=== PATIENT | male | born 1965 | race Caucasian/White ===

== ENCOUNTER 2023-04-05 23:58 | Emergency (ER) | payer OTHER ==
--- OUTSIDE RECORDS SUMMARY | 2023-04-06 00:04 | XMS REPORT | Continuity of Care Document ---
:1965 Author Organization [facility] t Address [address] [facility] [place]. [id number] Care Team Providers Name Role Phone James Parekh MD Primary Care Physician [phone] ARNULFO TRINH Attending Clinician Unavailable NOA KHALIL Attending Clinician Unavailable EDNA ISBELL Attending Clinician Unavailable WILLI DONATO Attending Clinician Unavailable RUDY DÍAZ Attending Clinician Unavailable Julien MADISON, Juan Whitman Attending Clinician Lila Graves MD Attending Clinician Indu Ramirez MA Attending Clinician Unavailable Nati Cruz MA Attending Clinician Unavailable FOG_A_Provider Attending Clinician Unavailable Bashir Sigala PA-C Attending Clinician [phone] NOA KHALIL Attending Clinician Unavailable Lnonie Brooks MD Attending Clinician Nicolle Flores MD Attending Clinician WENDY SHORE Attending Clinician Unavailable RUDY DÍAZ Attending Clinician Unavailable EDISON GUEVARA Attending Clinician Unavailable EDISON GUEVARA Attending Clinician Unavailable Maria Sandhu RN Attending Clinician Unavailable ROBYN BOLTON Attending Clinician Unavailable Geno Babin RN Attending Clinician Unavailable Ronaldo GALEAS, Aydin Attending Clinician Unavailable Sana Murillo RN Attending Clinician Unavailable Lexi Valencia RN Attending Clinician Unavailable Gus GALEAS, Allison Attending Clinician Unavailable WILLI DONATO M.D. Attending Clinician Unavailable INDU GANT M.D. Attending Clinician Unavailable ALESSANDRO KYLE M.D. Attending Clinician Unavailable NAVEEN SWIFT M.D. Attending Clinician Unavailable MAXI CEVALLOS P.A. Attending Clinician Unavailable SHAILESH SHARMA M.D. Attending Clinician Unavailable ANSON ROBISON Attending Clinician Unavailable GENERAL, AUDIOLOGY Attending Clinician Unavailable FOG_A_Provider Admitting Clinician Unavailable Payers Payer Name Policy Type Policy Number Effective Date Expiration Date S flory [facility] [employer] [id number] 2020 2024 00:00:00 00:00:00 Problems Condition Condition Condition Status Onset Resolution Last Treating Co mments Source Name Details Category Date Date Treatment Clinician Date Liver Liver Disease Active [facility] cirrhosis cirrhosis 2-28 [facility]al th secondary secondary 00:00: to RAMIREZ to RAMIREZ 00 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 3-10 He alth 00:00: 00 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 9-30 Health 00:00: 00 Hyperchole Hyperchole Disease Active 0 U T sterolemia sterolemia 9-30 He alth 00:00: 00 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 00:00: 00 Colon Colon Disease Active UT polyp polyp 2-11 Health 00:00: 00 Deviated Deviated Disease Active UT nasal nasal 2-03 Health septum septum 00:00: 00 Perforated Perforated Disease Active 2019-0 U T nasal nasal 2-03 Health septum septum 00:00: 00 Other Other Disease Active 0 UT general general 2-03 Health symptoms symptoms 00:00: and signs and signs 00 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- Health root root 00:00: 00 Essential Essential Disease Active 2018-10 UT (primary) (primary) 1-21 Heal th hypertensi hypertensi 00:00: on on Bicuspid Bicuspid Disease Active 2018-10 UT aortic aortic - Health valve valve 00:00: 00 Chest pain Chest pain Disease Active 2018-10 U T 1-21 Health 00:00: 00 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 1-21 Health disease disease 00:00: 00 Right Right Disease Active UT upper upper 8-15 Health quadrant quadrant 00:00: guarding guarding 00 Abdominal Abdominal Disease Active UT right right 8-15 Health upper upper 00:00: quadrant quadrant 00 tenderness tenderness Abnormal Abnormal Disease Active UT LFTs LFTs 8-15 Health 00:00: 00 Acute Acute Disease Active UT maxillary maxillary 7-29 [facility]al th antritis antritis 00:00: 00 Collapse Collapse Disease Active UT of nasal of nasal 2-26 Health valve valve 00:00: 00 Acute Acute Disease Active UT ethmoidal ethmoidal 2-04 Heal th sinusitis sinusitis 00:00: 00 Trigger Trigger Disease Active UT finger, finger, 2-28 Health right ring right ring 00:00: finger finger 00 Acute Acute Disease Active 2016-10 UT upper upper 0-24 Health respirator respirator 00:00: y y 00 infection infection TMJ TMJ Disease Active UT arthralgia arthralgia 5-09 He alth 00:00: 00 Otorrhea Otorrhea Disease Active UT of right of right 3-10 Health ear ear 00:00: 00 Acute Acute Disease Active UT infective infective 3-10 Heal th otitis otitis 00:00: externa, externa, 00 right right Right Right Disease Active 2015-10 UT acute acute 1-07 Health suppurativ suppurativ 00:00: e otitis e otitis 00 media media Bilateral Bilateral Disease Active UT chronic chronic 9-13 Health serous serous 00:00: otitis otitis 00 media media Dysfunctio Dysfunctio Disease Active U T n of both n of both 06-19 Heal th eustachian eustachian 00:00: tubes tubes 00 Sensation Sensation Disease Active UT of of 913 Health fullness fullness 00:00: in left in left 00 ear ear 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 909 Health loss in loss in 00:00: left ear left ear 00 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-24 Health movement movement 00:00: disorder disorder 00 Obstructiv Obstructiv Disease Active U T e sleep e sleep 6-24 Health apnea apnea 00:00: 00 Hypertroph Hypertroph Disease Active U T y of nasal y of nasal 6-24 He alth turbinates turbinates 00:00: 00 Headache Headache Disease Active UT 7-22 Health 00:00: 00 Cubital Cubital Disease Active UT tunnel tunnel 5-14 Health syndrome syndrome 00:00: on left on left 00 Vitamin Vitamin Disease Active UT B12 B12 5-10 Health deficiency deficiency 00:00: 00 Disturbanc Disturbanc Disease Active U T e of skin e of skin 4-30 Heal th sensation sensation 00:00: 00 Acid Acid Disease Active Method[facility] reflux reflux 1-01 st disease disease 00:00: Hospita 00 l History of History of Problem Resolve UT 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 ans History of History of Problem Resolve UT Meningitis Meningitis HL7.CCDAR2 d Physici ans History of History of Problem Resolve UT Migraine Migraine HL7.CCDAR2 d Ph ysici without without ans status status migrainosu migrainosu s, not s, not intractabl intractabl e e Numbness Numbness Problem Active UT Of Both Of Both HL7.CCDAR2 Phys ici Legs Legs ans Lumbar Lumbar Problem Active UT radiculopa radiculopa HL7.CCDAR2 Physici thy thy ans Cubital Cubital Problem Active UT tunnel tunnel HL7.CCDAR2 Physic i syndrome syndrome ans on left on left Carpal Carpal Problem Active UT tunnel tunnel HL7.CCDAR2 Physic i syndrome syndrome ans Chronic Chronic Problem Active UT rhinitis rhinitis HL7.CCDAR2 Ph ysici ans Conductive Conductive Problem Active U T hearing hearing HL7.CCDAR2 Phys ici loss in loss in ans left ear left ear Sensation Sensation Problem Active UT of of HL7.CCDAR2 Physic i fullness fullness ans in left in left ear ear Dysfunctio Dysfunctio Problem Active U T n of both n of both HL7.CCDAR2 Physici Eustachian Eustachian an s tubes tubes Acute Acute Problem Active UT suppurativ suppurativ HL7.CCDAR2 Physici e otitis e otitis ans media of media of left ear left ear without without spontaneou spontaneou s rupture s rupture of of tympanic tympanic membrane, membrane, recurrence recurrence not not specified specified Acute Acute Problem Active UT suppurativ suppurativ HL7.CCDAR2 Physici e otitis e otitis ans media of media of right ear right ear with with spontaneou spontaneou s rupture s rupture of of tympanic tympanic membrane, membrane, recurrence recurrence not not specified specified Otorrhea Otorrhea Problem Active UT of right of right HL7.CCDAR2 Ph ysici ear ear ans Chronic Chronic Problem Active UT ethmoidal ethmoidal HL7.CCDAR2 Physici sinusitis sinusitis ans Chronic Chronic Problem Active UT maxillary maxillary HL7.CCDAR2 Physici sinusitis sinusitis ans Other Other Problem Active UT synovitis synovitis HL7.CCDAR2 Physici and and ans tenosynovi tenosynovi tis, right tis, right hand hand No known No known Disease Metho di active active st problems problems Hospit a l Allergies, Adverse Reactions, Alerts Allergy Allergy Status Severity Reaction(s) Onset Inactive Treating Comm ents Source Name Type Date Date Clinician Sulfamet Allergy Active UT hoxazole to 12-14 Health -Trimeth substanc 00:00: oprim e 00 Morphine Allergy Active UT to 12-10 Health substanc 00:00: e 00 Morphine Propensi Active Other (See Me thodi ty to Comments) 12-10 st adverse 00:00: Hospita reaction 00 l s to drug Sulfa Allergy Active UT Antibiot to 07-06 Health ics substanc 00:00: e 00 Sulfa Propensi Active Other (See Meth roseann (Sulfona ty to Comments) 07-06 st mide adverse 00:00: Hospita Antibiot reaction 00 l ics) s to drug Clindamy Allergy Active Rash 2019-0 UT jose elias to 03-02 Health substanc 00:00: e 00 Levoflox Allergy Active Rash 2020-0 UT acin to 03-02 Health substanc 00:00: e 00 Clindamy Propensi Active Rash 2020-0 Method i jose elias ty to 03-02 st adverse 00:00: Hospita reaction 00 l s to drug Clindamy Propensi Active Rash 2020-0 Method i jose elias ty to 03-02 st Phosphat adverse 00:00: Hospita e reaction 00 l s to drug Levoflox Propensi Active Rash [facility] i acin ty to 03-02 st adverse 00:00: Hospita reaction 00 l s to drug Sulfamet Propensi Active Rash Method i hoxazole ty to 03-02 st -Trimeth adverse 00:00: Hospita oprim reaction 00 l s to drug Penicill Allergy Active Rash UT ins to 18 Health substanc 00:00: e 00 Penicill Propensi Active Rash [facility] i ins ty to 03-24 st adverse 00:00: Hospita reaction 00 l s to drug Penicill Propensi Active Rash Method i ins ty to 03-24 st adverse 00:00: Hospita reaction 00 l s to drug Bactrim drug Active UT TABS allergy Physici ans Clindamy drug Active Rash UT jose elias allergy Physici ans Levaquin drug Active UT TABS allergy Physici ans Penicill drug Active Rash UT ins allergy Physici ans Family History Family Member Diagnosis Comments Start Date Stop Date Source Unknown Family Family history Family History [facility] Member of Cancer Unknown Family Family history Family History [facility] Member of Heart Disease Father Family history [facility] Physici ans of cerebral infarction Natural father Heart attack [facility] Natural father Heart disease [facility] Natural [facility] Maternal Cancer [facility] grandmother [facility] Social History Social Habit Start Date Stop Date Quantity Comments Source Gender identity 2021-12-20 Identifies as [facility] 17:27:53 [facility] gender Hospital (finding) Sexual orientation [facility] Alcohol intake 2023-03-26 2023-03-26 Ex-drinker [facility] 00:00:00 00:00:00 (finding) Hospital History of Social 2023-03-26 2023-03-[address] function 00:00:00 00:00:00 Hospital Exposure to 2023-01-14 2023-01-24 Not sure [facility] SARS-CoV-2 (event) 00:00:00 14:30:00 Tobacco use and 2020-02-26 2020-02-26 Smokeless tobacco [facility] exposure 00:00:00 00:00:00 non-user Hospital Sex [facility] [birth year] [facility] 00:[facility] 00:00:00 Smoking Status Start Date Stop Date Source Tobacco smoking consumption unknown [facility] Never smoked tobacco [facility] Medications Ordered Filled Start Stop Current Ordering Indication Dosage Frequency Signature Comments Components Source Medication Medication Date Date Medication? Clinician (SIG) Name Name methylpheni Yes Method i date HCl 5-11 st (CONCERTA 14:53: Hospita ORAL) 46 l duloxetine Yes [facility] HCl 5-11 st (CYMBALTA 14:53: Hospita ORAL) 46 l fluticasone Yes into each M ethodi propionate 5-[address] (Flonase 14:53: Hospita Allergy 46 l Relief) 50 mcg/actuati on nasal spray aspirin 81 Yes 81mg QD Take 81 mg U T MG EC 4-20 by mouth 1 Health tablet 15:54: (one) time 49 each day. atorvastati 2023- Yes [id number] 40mg QD Take 1 UT n (Lipitor) 4-20 04-20 tablet (40 H ealth 40 MG 00:00: 04:59 mg total) tablet 00 :00 by mouth 1 (one) time each day. losartan 2023- Yes [id number] 50mg QD Take 1 UT (Cozaar) 50 4-20 04-20 tablet (50 H ealth MG tablet 00:00: 04:59 mg total) 00 :00 by mouth 1 (one) time each day. carvedilol 2022- No [id number] 12.5mg Q.5D Take 1 UT (Coreg) 3-30 09-27 tablet Health 12.5 MG 00:00: 04:59 (12.5 mg tablet 00 :00 total) by mouth in the morning and 1 tablet (12.5 mg total) before bedtime. Mupirocin Yes [id number] COMPOUND: UT powder 2-28 Mix 20mg Health 00:00: mupirocin 00 powder in SinusRinse . Irrigate each side twice daily Mupirocin Yes [id number] COMPOUND: [facility] powder 2-28 Mix 20mg Health 00:00: mupirocin 00 powder in SinusRinse . Irrigate each side twice daily Mupirocin Yes [id number] COMPOUND: [facility] powder 2-28 Mix 20mg Health 00:00: mupirocin 00 powder in SinusRinse . Irrigate each side twice daily Mupirocin 2023-0 2022- No [id number] COMPOUND: UT powder 12-04 Mix 20mg Health 00:00: 00:00 mupirocin 00 :00 powder in SinusRinse . Irrigate each side twice daily Mupirocin 2023-0 2022- No [id number] COMPOUND: UT powder 12-04 Mix 20mg Health 00:00: 00:00 mupirocin 00 :00 powder in SinusRinse . Irrigate each side twice daily carvedilol 3-0 2022- No [id number] 12.5mg Q.5D Take 1 UT (Coreg) 10-29-25 tablet Health 12.5 MG 00:00: 04:59 (12.5 mg tablet 00 :00 total) by mouth in the morning and 1 tablet (12.5 mg total) before bedtime. carvedilol 3-0 2022- No [id number] 12.5mg Q.5D Take 1 UT (Coreg) 10-29 tablet Health 12.5 MG 00:00: 04:59 (12.5 mg tablet 00 :00 total) by mouth in the morning and 1 tablet (12.5 mg total) before bedtime. methylpheni 2023-0 Yes Method i date HCl 1-09 st (CONCERTA 10:41: Hospita ORAL) 58 l duloxetine 2023-0 Yes Methodi HCl 1-09 st (CYMBALTA 10:41: Hospita ORAL) 58 l fluticasone 2023-0 Yes into each M ethodi propionate 1-[address] (Flonase 10:41: Hospita Allergy 58 l Relief) 50 mcg/actuati on nasal spray methylpheni 2023-0 Yes Method i date HCl 1-09 st (CONCERTA 10:41: Hospita ORAL) 58 l duloxetine 2023-0 Yes Methodi HCl 1-09 st (CYMBALTA 10:41: Hospita ORAL) 58 l fluticasone 2023-0 Yes into each M ethodi propionate 1-[address] (Flonase 10:41: Hospita Allergy 58 l Relief) 50 mcg/actuati on nasal spray methylpheni 2023-0 Yes Method i date HCl 1-09 st (CONCERTA 10:41: Hospita ORAL) 58 l duloxetine 2023-0 Yes Methodi HCl 1-09 st (CYMBALTA 10:41: Hospita ORAL) 58 l fluticasone 2023-0 Yes into each M ethodi propionate 1-[address] (Flonase 10:41: Hospita Allergy 58 l Relief) 50 mcg/actuati on nasal spray methylpheni 3-0 Yes Method i date HCl 1-09 st (CONCERTA 10:41: Hospita ORAL) 58 l duloxetine 2023-0 Yes Methodi HCl 1-09 st (CYMBALTA 10:41: Hospita ORAL) 58 l fluticasone 2023-0 Yes into each M ethodi propionate 1-[address] (Flonase 10:41: Hospita Allergy 58 l Relief) 50 mcg/actuati on nasal spray methylpheni 3-0 Yes Method i date HCl 1-09 st (CONCERTA 10:41: Hospita ORAL) 58 l duloxetine 2023-0 Yes Methodi HCl 1-09 st (CYMBALTA 10:41: Hospita ORAL) 58 l fluticasone 2023-0 Yes into each M ethodi propionate 1-[address] (Flonase 10:41: Hospita Allergy 58 l Relief) 50 mcg/actuati on nasal spray celecoxib 2022-0 Yes [id number] TAKE 1 Me thodi (CeleBREX) 1-06 CAPSULE(20 st 200 MG 00:00: 0 MG) BY Hospita capsule 00 MOUTH l DAILY celecoxib 2022-0 Yes [id number] TAKE 1 Me thodi (CeleBREX) 1-06 CAPSULE(20 st 200 MG 00:00: 0 MG) BY Hospita capsule 00 MOUTH l DAILY celecoxib 3-0 Yes [id number] TAKE 1 Me thodi (CeleBREX) 1-06 CAPSULE(20 st 200 MG 00:00: 0 MG) BY Hospita capsule 00 MOUTH l DAILY celecoxib 3-0 Yes [id number] TAKE 1 Me thodi (CeleBREX) 1-06 CAPSULE(20 st 200 MG 00:00: 0 MG) BY Hospita capsule 00 MOUTH l DAILY celecoxib 2023-0 Yes [id number] TAKE 1 Me thodi (CeleBREX) 1-06 CAPSULE(20 st 200 MG 00:00: 0 MG) BY Hospita capsule 00 MOUTH l DAILY celecoxib 2023-0 2023- No [id number] TAKE 1 M ethodi (CeleBREX) 10-12 05-11 CAPSULE(20 st 200 MG 00:00: 00:00 0 MG) BY Hospit a capsule 00 :00 MOUTH l DAILY levomefolat 2023-0 Yes [id number] 1{capsu Q.5D Take 1 Methodi e-[id number]-[id number] 1-05 le} capsule by st 236 00:00: mouth 2 Hospita (Rheumate) 00 (two) l 1-1-500 mg times a capsule day. levomefolat 3-0 Yes [id number] 1{capsu Q.5D Take 1 Methodi e-Q22-dnjk 1-05 le} capsule by st 236 00:00: mouth 2 Hospita (Rheumate) 00 (two) l 1-1-500 mg times a capsule day. levomefolat 2023-0 Yes [id number] 1{capsu Q.5D Take 1 Methodi e-I20-ctlz 1-05 le} capsule by st 236 00:00: mouth 2 Hospita (Rheumate) 00 (two) l 1-1-500 mg times a capsule day. levomefolat 3-0 Yes [id number] 1{capsu Q.5D Take 1 Methodi e-D84-negc 1-05 le} capsule by st 236 00:00: mouth 2 Hospita (Rheumate) 00 (two) l 1-1-500 mg times a capsule day. levomefolat 3-0 Yes [id number] 1{capsu Q.5D Take 1 Methodi e-E19-eooy 1-05 le} capsule by st 236 00:00: mouth 2 Hospita (Rheumate) 00 (two) l 1-1-500 mg times a capsule day. levomefolat 3-0 Yes [id number] 1{capsu Q.5D Take 1 Methodi e-D83-pkai 1-05 le} capsule by st 236 00:00: mouth 2 Hospita (Rheumate) 00 (two) l 1-1-500 mg times a capsule day. celecoxib 3-0 2023- No [id number] 200mg QD Take 1 [facility] (CeleBREX) 10-11-[address] 200 MG 00:00: 00:00 (200 mg Hospita capsule 00 :00 total) by l mouth daily for 30 days. celecoxib 2022- No [id number] 200mg QD Take 1 [facility] (CeleBREX) 10-[address] 200 MG 00:00: 00:00 (200 mg Hospita capsule 00 :00 total) by l mouth daily for 30 days. celecoxib 3- No [id number] 200mg QD Take 1 Method[facility] (CeleBREX) 10-[address] 200 MG 00:00: 00:00 (200 mg Hospita capsule 00 :00 total) by l mouth daily for 30 days. celecoxib 2022- No [id number] 200mg QD Take 1 [facility] (CeleBREX) 10-[address] 200 MG 00:00: 00:00 (200 mg Hospita capsule 00 :00 total) by l mouth daily for 30 days. celecoxib 2022- No [id number] 200mg QD Take 1 [facility] (CeleBREX) 10-[address] 200 MG 00:00: 00:00 (200 mg Hospita capsule 00 :00 total) by l mouth daily for 30 days. celecoxib 2022- No [id number] 200mg QD Take 1 [facility] (CeleBREX) 10-[address] 200 MG 00:00: 00:00 (200 mg Hospita capsule 00 :00 total) by l mouth daily for 30 days. Mupirocin 2021-10 Yes [id number] COMPOUND: UT powder 0-12 Mix 20mg Health 00:00: mupirocin 00 powder in SinusRinse . Irrigate each side twice daily Mupirocin 2021-10- No [id number] COMPOUND: UT powder 0-12 -28 Mix 20mg Health 00:00: 00:00 mupirocin 00 :00 powder in SinusRinse . Irrigate each side twice daily clopidogrel Yes [id number] TAKE 1 UT (Plavix) 75 8-29 TABLET BY Hea lth MG tablet 00:00: MOUTH 00 DAILY carvedilol Yes [id number] TAKE 1 U T (Coreg) 8-29 TABLET BY Health 12.5 MG 00:00: MOUTH tablet 00 TWICE DAILY clopidogrel Yes [id number] TAKE 1 UT (Plavix) 75 8-29 TABLET BY Hea lth MG tablet 00:00: MOUTH 00 DAILY clopidogrel 2021-0 Yes [id number] TAKE 1 UT (Plavix) 75 8-29 TABLET BY Hea lth MG tablet 00:00: MOUTH 00 DAILY clopidogrel 2021-0 Yes [id number] TAKE 1 UT (Plavix) 75 8-29 TABLET BY Hea lth MG tablet 00:00: MOUTH 00 DAILY atorvastati 2021-0 Yes [id number] TAKE 1 UT n (Lipitor) 7-20 TABLET BY Hea lth 20 MG 00:00: MOUTH tablet 00 EVERY NIGHT AT BEDTIME atorvastati 2021-0 Yes [id number] TAKE 1 UT n (Lipitor) 7-20 TABLET BY Hea lth 20 MG 00:00: MOUTH tablet 00 EVERY NIGHT AT BEDTIME atorvastati 2021-0 Yes [id number] TAKE 1 UT n (Lipitor) 7-20 TABLET BY Hea lth 20 MG 00:00: MOUTH tablet 00 EVERY NIGHT AT BEDTIME atorvastati 2021-0 3- No [id number] TAKE 1 UT n (Lipitor) 7-20 04-20 TABLET BY He alth 20 MG 00:00: 00:00 MOUTH tablet 00 :00 EVERY NIGHT AT BEDTIME Mupirocin 2021-0 Yes [id number] COMPOUND: UT powder 6-29 Mix 20mg Health 00:00: mupirocin 00 powder in SinusRinse . Irrigate each side twice daily technetium 2021-0 Yes [id number] 8mCi UT Tc-99m 3-24 Health sestamibi 16:48: (Cardiolite 55 ) radio-isoto pe injection 8-18 millicurie technetium 2021-0 Yes 4001 8mCi UT Tc-99m 3-24 Health sestamibi 16:48: (Cardiolite 55 ) radio-isoto pe injection 8-18 millicurie technetium 2021-0 Yes 4001 8mCi UT Tc-99m 3-24 Health sestamibi 16:48: (Cardiolite 55 ) radio-isoto pe injection 8-18 millicurie technetium 2021-0 Yes 4001 8mCi UT Tc-99m 3-24 Health sestamibi 16:48: (Cardiolite 55 ) radio-isoto pe injection 8-18 millicurie technetium 2022-0 Yes 4001 8mCi UT Tc-99m 3-24 Health sestamibi 16:48: (Cardiolite 55 ) radio-isoto pe injection 8-18 millicurie technetium 2022-0 Yes 4001 8mCi UT Tc-99m 3-24 Health sestamibi 16:48: (Cardiolite 55 ) radio-isoto pe injection 8-18 millicurie technetium 2022-0 Yes 4001 18mCi UT Tc-99m 3-24 Health sestamibi 16:48: (Cardiolite 54 ) radio-isoto pe injection 18-45 millicurie technetium 2022-0 Yes 4001 18mCi UT Tc-99m 3-24 Health sestamibi 16:48: (Cardiolite 54 ) radio-isoto pe injection 18-45 millicurie technetium 2022-0 Yes 4001 18mCi UT Tc-99m 3-24 Health sestamibi 16:48: (Cardiolite 54 ) radio-isoto pe injection 18-45 millicurie technetium 2022-0 Yes 4001 18mCi UT Tc-99m 3-24 Health sestamibi 16:48: (Cardiolite 54 ) radio-isoto pe injection 18-45 millicurie technetium 2022-0 Yes 4001 18mCi UT Tc-99m 3-24 Health sestamibi 16:48: (Cardiolite 54 ) radio-isoto pe injection 18-45 millicurie technetium 2022-0 Yes 4001 18mCi UT Tc-99m 3-24 Health sestamibi 16:48: (Cardiolite 54 ) radio-isoto pe injection 18-45 millicurie aspirin 81 2021-0 Yes 81mg QD Take 81 mg U T MG EC 3-10 by mouth 1 Health tablet 15:01: (one) time 04 each day. aspirin 81 2021-0 Yes 81mg QD Take 81 mg U T MG EC 3-10 by mouth 1 Health tablet 15:01: (one) time 04 each day. aspirin 81 2021-0 Yes 81mg QD Take 81 mg U T MG EC 3-10 by mouth 1 Health tablet 15:01: (one) time 04 each day. aspirin 81 2-0 Yes 81mg QD Take 81 mg U T MG EC 3-10 by mouth 1 Health tablet 15:01: (one) time 04 each day. aspirin 81 2022-0 Yes 81mg QD Take 81 mg U T MG EC 3-10 by mouth 1 Health tablet 15:01: (one) time 04 each day. Mupirocin 2022-0 Yes [id number] COMPOUND: UT powder 3-10 Mix 20mg Health 00:00: mupirocin 00 powder in SinusRinse . Irrigate each side twice daily Mupirocin 2022-0 2022- No [id number] COMPOUND: UT powder 3-10 06-29 Mix 20mg Health 00:00: 00:00 mupirocin 00 :00 powder in SinusRinse . Irrigate each side twice daily esomeprazol 2022-0 Yes 40mg Take 40 mg UT e (NexIUM) 1-21 by mouth [address] [facility] [address] 00:00: (one) time capsule 00 each day before breakfast. esomeprazol 2022-0 Yes 40mg Take 40 mg UT e (NexIUM) 1-21 by mouth [address] [facility] [address] 00:00: (one) time capsule 00 each day before breakfast. esomeprazol 2022-0 Yes 40mg Take 40 mg UT e (NexIUM) 1-21 by mouth [address] [facility] [address] 00:00: (one) time capsule 00 each day before breakfast. esomeprazol 2022-0 Yes 40mg Take 40 mg UT e (NexIUM) 1-21 by mouth [address] [facility] [address] 00:00: (one) time capsule 00 each day before breakfast. esomeprazol 2022-0 Yes 40mg Take 40 mg UT e (NexIUM) 1-21 by mouth [address] [facility] [address] 00:00: (one) time capsule 00 each day before breakfast. esomeprazol 2022-0 Yes 40mg Take 40 mg UT e (NexIUM) 1-21 by mouth [address] [facility] [address] 00:00: (one) time capsule 00 each day before breakfast. carvedilol 2022-0 Yes [id number] TAKE 1 U T (Coreg) 1-17 TABLET BY Health 12.5 MG 00:00: MOUTH tablet 00 TWICE DAILY carvedilol Yes [id number] TAKE 1 U T (Coreg) 1-17 TABLET BY Health 12.5 MG 00:00: MOUTH tablet 00 TWICE DAILY No known 0 No No known UT medications - medication He alth 15:18: s 01 No known 0 No No known UT medications 07-06 medication He alth 15:18: s 01 No known 0 No No known UT medications 07-06 medication He alth 15:18: s 01 No known 0 No No known UT medications 07-06 medication He alth 15:18: s 01 atorvastati 0 Yes [id number] TAKE 1 UT n (Lipitor) 6-04 TABLET BY Hea lth 20 MG 00:00: MOUTH tablet 00 EVERY NIGHT AT BEDTIME clopidogrel 2020-0 Yes [id number] TAKE 1 UT (Plavix) 75 6-04 TABLET BY Hea lth MG tablet 00:00: MOUTH 00 DAILY atorvastati 0 Yes [id number] TAKE 1 UT n (Lipitor) 6-04 TABLET BY Hea lth 20 MG 00:00: MOUTH tablet 00 EVERY NIGHT AT BEDTIME clopidogrel 2020-0 Yes [id number] TAKE 1 UT (Plavix) 75 6-04 TABLET BY Hea lth MG tablet 00:00: MOUTH 00 DAILY atorvastati 2020-0 Yes [id number] TAKE 1 UT n (Lipitor) 6-04 TABLET BY Hea lth 20 MG 00:00: MOUTH tablet 00 EVERY NIGHT AT BEDTIME clopidogrel 2020-0 Yes [id number] TAKE 1 UT (Plavix) 75 6-04 TABLET BY Hea lth MG tablet 00:00: MOUTH 00 DAILY atorvastati 2020-0 Yes [id number] TAKE 1 UT n (Lipitor) 6-04 TABLET BY Hea lth 20 MG 00:00: MOUTH tablet 00 EVERY NIGHT AT BEDTIME clopidogrel 2020-0 Yes [id number] TAKE 1 UT (Plavix) 75 6-04 TABLET BY [facility] MG tablet 00:00: MOUTH 00 DAILY clopidogreL 2018-10 Yes [facility] (Plavix) 75 2-01 st mg tablet 00:00: Hospita 00 l atorvastati 2018-10 Yes [facility] i n (LIPITOR) 2- st 20 mg 00:00: Hospita tablet 00 l carvediloL 2018-10 Yes [facility] (COREG) 2-01 st 12.5 MG 00:00: Hospita tablet 00 l clopidogreL 2018-10 Yes [facility] (Plavix) 75 2-01 st mg tablet 00:00: Hospita 00 l atorvastati 2018-10 Yes Method i n (LIPITOR) 2- st 20 mg 00:00: Hospita tablet 00 l carvediloL 2018-10 Yes [facility] (COREG) 2- st 12.5 MG 00:00: Hospita tablet 00 l clopidogreL 2018-10 Yes [facility] (Plavix) 75 2-01 st mg tablet 00:00: Hospita 00 l atorvastati 2018-10 Yes [facility] n (LIPITOR) 2- st 20 mg 00:00: Hospita tablet 00 l carvediloL 2018-10 Yes [facility] (COREG) 2- st 12.5 MG 00:00: Hospita tablet 00 l clopidogreL 2018-10 Yes [facility] (Plavix) 75 2-01 st mg tablet 00:00: Hospita 00 l atorvastati 2018-10 Yes [facility] n (LIPITOR) 2- st 20 mg 00:00: Hospita tablet 00 l carvediloL 2018-10 Yes [facility] (COREG) 2- st 12.5 MG 00:00: Hospita tablet 00 l clopidogreL 2018-10 Yes [facility] (Plavix) 75 2-01 st mg tablet 00:00: Hospita 00 l atorvastati 2018-10 Yes [facility] n (LIPITOR) 2- st 20 mg 00:00: Hospita tablet 00 l carvediloL 2018-10 Yes [facility] (COREG) 2- st 12.5 MG 00:00: Hospita tablet 00 l clopidogreL 2018-10 Yes [facility] (Plavix) 75 2-01 st mg tablet 00:00: Hospita 00 l atorvastati 2018-10 Yes [facility] n (LIPITOR) 2-01 st 20 mg 00:00: Hospita tablet 00 l carvediloL 2018-10 Yes [facility] (COREG) 2-01 st 12.5 MG 00:00: Hospita tablet 00 l clopidogreL 2018-10 Yes [facility] (Plavix) 75 2-01 st mg tablet 00:00: Hospita 00 l atorvastati 2018-10 Yes [facility] n (LIPITOR) 2- st 20 mg 00:00: Hospita tablet 00 l carvediloL 2018-10 Yes [facility] (COREG) 2- st 12.5 MG 00:00: Hospita tablet 00 l clopidogreL 2018-10 Yes [facility] (Plavix) 75 2-01 st mg tablet 00:00: Hospita 00 l atorvastati 2018-10 Yes [facility] n (LIPITOR) 2 st 20 mg 00:00: Hospita tablet 00 l carvediloL 2018-10 Yes [facility] (COREG) 2- st 12.5 MG 00:00: Hospita tablet 00 l clopidogreL 2018-10 Yes [facility] (Plavix) 75 2-01 st mg tablet 00:00: Hospita 00 l atorvastati 2018-10 Yes [facility] n (LIPITOR) 2 st 20 mg 00:00: Hospita tablet 00 l carvediloL 2018-10 Yes [facility] (COREG) 2 st 12.5 MG 00:00: Hospita tablet 00 l nitroglycer 2018-[address] 0.4 U T in 1-21 mg under Health (Nitrostat) 00:00: the tongue 0.4 MG SL 00 if needed. tablet nitroglycer 2018-[address] 0.4 U T in 1-21 mg under Health (Nitrostat) 00:00: the tongue 0.4 MG SL 00 if needed. tablet nitroglycer 2018-[address] 0.4 U T in 1-21 mg under Health (Nitrostat) 00:00: the tongue 0.4 MG SL 00 if needed. tablet nitroglycer 2018-[address] 0.4 U T in 1-21 mg under Health (Nitrostat) 00:00: the tongue 0.4 MG SL 00 if needed. tablet nitroglycer 2018-[address] 0.4 U T in 1-21 mg under Health (Nitrostat) 00:00: the tongue 0.4 MG SL 00 if needed. tablet nitroglycer 2018-[address] 0.4 U T in 1-21 mg under Health (Nitrostat) 00:00: the tongue 0.4 MG SL 00 if needed. tablet pantoprazol Yes Method i e sodium 7-15 st (PANTOPRAZO 00:00: Hospit a LE ORAL) 00 l pantoprazol Yes Method i e sodium 7-15 st (PANTOPRAZO 00:00: Hospit a LE ORAL) 00 l pantoprazol Yes Method i e sodium 7-15 st (PANTOPRAZO 00:00: Hospit a LE ORAL) 00 l pantoprazol Yes Method i e sodium 7-15 st (PANTOPRAZO 00:00: Hospit a LE ORAL) 00 l pantoprazol Yes Method i e sodium 7-15 st (PANTOPRAZO 00:00: Hospit a LE ORAL) 00 l pantoprazol Yes Method i e sodium 7-15 st (PANTOPRAZO 00:00: Hospit a LE ORAL) 00 l pantoprazol Yes Method i e sodium 7-15 st (PANTOPRAZO 00:00: Hospit a LE ORAL) 00 l pantoprazol Yes Method i e sodium 7-15 st (PANTOPRAZO 00:00: Hospit a LE ORAL) 00 l pantoprazol Yes Method i e sodium 7-15 st (PANTOPRAZO 00:00: Hospit a LE ORAL) 00 l Cefuroxime Cefuroxime Yes WILLI Q12H TAKE 1 UT Axetil 500 Axetil 500 1-14 CITARDI TABLET Physici MG Oral MG Oral 00:00: M.D. EVERY 12 ans Tablet Tablet 00 HOURS DAILY. Multi Multi Yes 1 QD TAKE 1 UT Vitamin Vitamin 9-24 TABLET Physici Mens Oral Mens Oral 00:00: DAILY. a ns Tablet Tablet 00 Iron TABS Iron TABS Yes [facility] ans Vitamin Vitamin Yes UT B-12 TABS B-12 TABS Physi ci ans Flonase Flonase Yes UT SUSP SUSP Physici ans Vital Signs Vital Name Observation Time Observation Value Comments Source Systolic blood 2023-01-24 155 mm[Hg] [facility] pressure 20:55:00 Diastolic blood 2023-01-24 75 mm[Hg] [facility] pressure 20:55:00 Heart rate 2023-01-24 60 /min [facility] 20:55:00 Body height 2023-01-24 180.3 cm [facility] 20:53:00 Body weight 2023-01-24 106.505 kg [facility] 20:53:00 BMI 2023-01-24 32.75 kg/m2 [facility] 20:53:00 Body height 2022-12-04 180.3 cm [facility] 13:35:00 Body weight 2022-12-04 104.327 kg [facility] 13:35:00 BMI 2022-12-04 32.08 kg/m2 [facility] 13:35:00 Body height 2022-10-17 180.3 cm [facility] 20:43:00 Hospital Body weight 2022-10-17 106.595 kg [facility] 20:43:00 Hospital BMI 2022-10-17 32.78 kg/m2 [facility] 20:43:00 Hospital BP Systolic 2018-10-15 133 mm[Hg] Location: LUE; [facility] 13:08:00 Position: Sitting BP Diastolic 2018-10-15 81 mm[Hg] Location: LUE; [facility] 13:08:00 Position: Sitting Height 2018-10-15 71 [in_us] [facility] 13:08:00 Weight 2018-10-15 240 [lb_av] [facility] 13:08:00 Body Mass Index 2018-10-15 33.47 kg/m2 [facility] 13:08:00 Temperature 2018-10-15 97.3 [degF] Method: Oral [facility] 13:08:00 Heart Rate 2018-10-15 61 /min [facility] 13:08:00 BP Systolic 2018-09-24 127 mm[Hg] Location: LUE; [facility] 13:44:00 Position: Sitting BP Diastolic 2018-09-24 72 mm[Hg] Location: [place]; [facility] 13:44:00 Position: Sitting Height 2018-09-24 71 [in_us] [facility] 13:44:00 Weight 2018-09-24 240.4 [lb_av] [facility] 13:44:00 Body Mass Index 2018-09-24 33.53 kg/m2 [facility] 13:44:00 Heart Rate 2018-09-24 64 /min Location: L [facility] 13:44:00 Brachial Artery; Respiration Rate 2018-09-24 16 /min [facility] 13:44:00 Procedures Procedure Date / Time Performing Clinician Source Performed MRI WRIST WO CONTRAST 2023-03-19 17:30:30 Lila Graves [facility] RIGHT ID INJECTION 1 TENDON 2023-03-07 22:07:00 Lila Graves [facility] SHEATH/LIGAMENT APONEUROSIS XR WRIST 3+ VW RIGHT 2023-02-14 20:06:10 Lila Graves [facility] ID ARTHROCENTESIS 2023-02-14 [facility] ASPIR&/INJ INTERM JT/BURS W/O US XR HIPS BILATERAL 2 VIEWS 2022-10-11 20:45:[address] [facility] [H] Culture Sinus w/GS 2018-10-15 00:00:00 [facility] History of Nasal [facility] With Maxillary Antrostomy History of Ear Pressure [facility] Equalization Tube, Insertion Plan of Care Planned Activity Planned Date Details Comments Source Future Scheduled 2023-03-[address] [facility] Test 11:52:57 malignant neoplasm of colon (procedure) [code = 085149479] Future Scheduled 2023-03-[address] [facility] Test 11:52:57 malignant neoplasm of colon (procedure) [code = 986366918] Future Scheduled 2023-03-27 HEPATITIS B VACCINES Met [facility] Test 11:52:57 (1 of 3 - 3-dose series) [code = HEPATITIS B VACCINES (1 of 3 - 3-dose series)] Future Scheduled 2023-03-[address] [facility] Test 11:52:57 malignant neoplasm of colon (procedure) [code = 809442584] Future Scheduled 2023-03-27 COVID-19 VACCINE (#1) [facility] Test 11:52:57 [code = COVID-19 VACCINE (#1)] Future Scheduled 2023-03-27 Hepatitis C screening [facility] Test 11:52:57 (procedure) [code = 462011434] Future Scheduled 2023-03-[address] [facility] Test 11:52:57 malignant neoplasm of colon (procedure) [code = 060936793] Future Scheduled 2023-03-[address] [facility] Test 11:52:57 malignant neoplasm of colon (procedure) [code = 506368464] Future Scheduled 2023-03-27 SHINGLES VACCINES ([address] [facility] Hospital Test 11:52:57 of 2) [code = SHINGLES VACCINES (1 of 2)] Future Scheduled 2023-03-27 INFLUENZA VACCINE [facility] Test 11:52:57 [code = INFLUENZA VACCINE] Future Scheduled 2022-12-21 HEPATITIS B VACCINES Met [facility] Hospital Test 10:25:15 (1 of 3 - 3-dose series) [code = HEPATITIS B VACCINES (1 of 3 - 3-dose series)] Future Scheduled 2022-12-21 COVID-19 VACCINE (#1) [facility] Test 10:25:15 [code = COVID-19 VACCINE (#1)] Future Scheduled 2022-12-21 [facility] Test 10:25:15 (procedure) [code = 115161937] Future Scheduled 2022-12-21 COLONOSCOPY SCREENING [facility] Test 10:25:15 [code = COLONOSCOPY SCREENING] Future Scheduled 2022-12-21 SHINGLES VACCINES ([address] [facility] Hospital Test 10:25:15 of 2) [code = SHINGLES VACCINES (1 of 2)] Future Scheduled 2022-12-21 INFLUENZA VACCINE [facility] Test 10:25:15 [code = INFLUENZA VACCINE] Future Scheduled 2022-12-18 COVID-19 [facility]ACCINE (#1) [facility] Test 07:55:44 [code = COVID-19 VACCINE (#1)] Future Scheduled 2022-12-18 Hepatitis C screening [facility] Test 07:55:44 (procedure) [code = 075378193] Future Scheduled 2022-12-18 COLONOSCOPY SCREENING [facility] Test 07:55:44 [code = COLONOSCOPY SCREENING] Future Scheduled 2022-12-18 SHINGLES VACCINES ([address] [facility] Hospital Test 07:55:44 of 2) [code = SHINGLES VACCINES (1 of 2)] Future Scheduled 2022-12-18 INFLUENZA VACCINE [facility] Hospital Test 07:55:44 [code = INFLUENZA VACCINE] Future Scheduled 2022-12-18 HEPATITIS B VACCINES Met [facility] Hospital Test 07:55:44 (1 of 3 - 3-dose series) [code = HEPATITIS B VACCINES (1 of 3 - 3-dose series)] Future Scheduled 2022-12-18 COVID-19 VACCINE (#1) [facility] Test 07:55:44 [code = COVID-19 VACCINE (#1)] Future Scheduled 2022-12-18 Hepatitis C screening [facility] Test 07:55:44 (procedure) [code = 673823209] Future Scheduled 2022-12-18 COLONOSCOPY SCREENING [facility] Test 07:55:44 [code = COLONOSCOPY SCREENING] Future Scheduled 2022-12-18 SHINGLES VACCINES ([address] [facility] Hospital Test 07:55:44 of 2) [code = SHINGLES VACCINES (1 of 2)] Future Scheduled 2022-12-18 INFLUENZA VACCINE Method [facility] Hospital Test 07:55:44 [code = INFLUENZA VACCINE] Future Scheduled 2022-12-18 HEPATITIS B VACCINES [facility] Test 07:55:44 (1 of 3 - 3-dose series) [code = HEPATITIS B VACCINES (1 of 3 - 3-dose series)] Future Scheduled 2022-12-18 COVID-19 VACCINE (#1) [facility] Test 07:55:44 [code = COVID-19 VACCINE (#1)] Future Scheduled 2022-12-18 Hepatitis C screening [facility] Test 07:55:44 (procedure) [code = 209043551] Future Scheduled 2022-12-18 COLONOSCOPY SCREENING [facility] Test 07:55:44 [code = COLONOSCOPY SCREENING] Future Scheduled 2022-12-18 SHINGLES VACCINES ([address] [facility] Hospital Test 07:55:44 of 2) [code = SHINGLES VACCINES (1 of 2)] Future Scheduled 2022-12-18 INFLUENZA VACCINE Method [facility] Hospital Test 07:55:44 [code = INFLUENZA VACCINE] Future Scheduled 2022-12-18 HEPATITIS B VACCINES [facility] Test 07:55:44 (1 of 3 - 3-dose series) [code = HEPATITIS B VACCINES (1 of 3 - 3-dose series)] Future Scheduled 2022-12-18 COVID-19 VACCINE (#1) [facility] Test 07:55:44 [code = COVID-19 VACCINE (#1)] Future Scheduled 2022-12-18 Hepatitis C screening [facility] Test 07:55:44 (procedure) [code = 739706358] Future Scheduled 2022-12-18 COLONOSCOPY SCREENING [facility] Test 07:55:44 [code = COLONOSCOPY SCREENING] Future Scheduled 2022-12-18 SHINGLES VACCINES (1 [facility] Test 07:55:44 of 2) [code = SHINGLES VACCINES (1 of 2)] Future Scheduled 2022-12-18 INFLUENZA VACCINE Method [facility] Hospital Test 07:55:44 [code = INFLUENZA VACCINE] Future Scheduled 2022-12-18 HEPATITIS B VACCINES [facility] Test 07:55:44 (1 of 3 - 3-dose series) [code = HEPATITIS B VACCINES (1 of 3 - 3-dose series)] Future Scheduled 2022-08-08 HEPATITIS B VACCINES [facility] Test 12:02:45 (1 of 3 - 3-dose series) [code = HEPATITIS B VACCINES (1 of 3 - 3-dose series)] Future Scheduled 2022-08-08 COVID-19 VACCINE (#1) [facility] Test 12:02:45 [code = COVID-19 VACCINE (#1)] Future Scheduled 2022-08-08 Hepatitis C screening [facility] Test 12:02:45 (procedure) [code = 643964999] Future Scheduled 2022-08-08 COLONOSCOPY SCREENING [facility] Test 12:02:45 [code = COLONOSCOPY SCREENING] Future Scheduled 2022-08-08 SHINGLES VACCINES (1 [facility] Test 12:02:45 of 2) [code = SHINGLES VACCINES (1 of 2)] Future Scheduled 2022-08-08 INFLUENZA VACCINE Method [facility] Hospital Test 12:02:45 [code = INFLUENZA VACCINE] Future Scheduled 2022-08-08 HEPATITIS B VACCINES [facility] Test 12:02:45 (1 of 3 - 3-dose series) [code = HEPATITIS B VACCINES (1 of 3 - 3-dose series)] Future Scheduled 2022-08-08 COVID-19 VACCINE (#1) [facility] Test 12:02:45 [code = COVID-19 VACCINE (#1)] Future Scheduled 2022-08-08 Hepatitis C screening [facility] Test 12:02:45 (procedure) [code = 555191347] Future Scheduled 2022-08-08 COLONOSCOPY SCREENING [facility] Test 12:02:45 [code = COLONOSCOPY SCREENING] Future Scheduled 2022-08-08 SHINGLES VACCINES ([address] [facility] Hospital Test 12:02:45 of 2) [code = SHINGLES VACCINES (1 of 2)] Future Scheduled 2022-08-08 INFLUENZA VACCINE Method [facility] Hospital Test 12:02:45 [code = INFLUENZA VACCINE] Future Scheduled COVID-19 VACCINE (1) [facility] Test [code = COVID-19 VACCINE (1)] Future Scheduled Hepatitis C screening [facility] Test (procedure) [code = 531000658] Future Scheduled COLONOSCOPY SCREENING [facility] Test [code = COLONOSCOPY SCREENING] Future Scheduled SHINGLES VACCINES [facility] Test (#1) [code = SHINGLES VACCINES (#1)] Future Scheduled INFLUENZA VACCINE Method is Hospital Test [code = INFLUENZA VACCINE] Encounters Start End Encounter Admission Attending Care Care Encounter Source Date/Time Date/Time Type Type Clinicians Facility Department ID 2023-01-24 Outpatient [facility] [id number] [place] 14:31:30 [id number] Health 2022-12-18 Outpatient [facility] [id number] [place] 10:00:30 [id number] Health 2022-12-13 Outpatient [facility] [id number] [place] 11:33:15 [id number] Health 2022-12-03 Outpatient [facility] [id number] [place] 11:09:19 [id number] Health 2022-11-14 Outpatient [facility] [id number] [place] 15:33:12 [id number] [facility] 2022-09-18 Outpatient [facility] [id number] [place] 08:01:06 [id number] Health 2022-09-11 Outpatient [facility] [id number] [place] 08:49:10 [id number] Health 2021-12-22 Outpatient [facility] [id number] [place] 15:26:09 [facility] 2021-12-18 Outpatient [facility] [id number] [place] 17:49:40 Health 2021-12-14 Outpatient ZIGGY ASHLEYDestiny [facility] [id number] [place] 16:05:44 Health 2021-12-14 Outpatient [facility] [id number] [place] 16:01:17 [facility] 2021-09-26 Outpatient SIMRAN [facility] [id number] [place] 08:49:20 NOA [facility] 2021-07-06 Outpatient EDNA ISBELL [facility] [id number] [place] 16:10:26 [facility] 2021-05-01 Outpatient CITARDI, [facility] [id number] [place] 14:10:29 [facility] 2021-03-10 Outpatient BRE, [facility] [id number] [place] 01:03:37 [facility] 2021-02-24 Outpatient BRE, [facility] [id number] [place] 01:06:24 [facility] 2023-05-30 2023-05-30 Outpatient ARNULFO TRINH [facility] [id number] [place] 15:15:00 15:15:00 [facility] 2023-04-02 2023-04-02 Outpatient KINGA, [facility] [id number] [place] 08:45:00 08:45:00 [facility] 2023-03-26 2023-03-26 Office Uriah Victoria.2.840.1 [id number] Methodi 08:45:00 09:30:10 Visit Juan Whitman 28354.1.[address] 3.430.2.7 Hospit a .3.908726 l .8 2023-03-26 2023-03-26 Outpatient JULIEN, [facility] [id number] [place] 00:00:00 00:00:00 JUAN 496 Method i 2023-03-21 2023-03-21 Telemedici Lila Graves 1.2.840.1 [id number] Methodi 07:30:00 07:41:[address].1.[address] 3.430.2.7 Hospit a .3.125977 l .8 2023-03-21 2023-03-21 Outpatient LILA GRAVES [facility] [id number] [place] 00:00:00 00:00:[address] 2023-03-19 2023-03-19 Outpatient LILA GRAVES [facility] [id number] [place] 00:00:00 00:00:[address] 2023-03-07 2023-03-07 Office Lila Graves 1.2.840.1 [id number] Methodi 16:00:00 17:08:[address]250.1.[address] 3.430.2.7 Hospit a .3.045996 l .8 2023-03-07 2023-03-07 Outpatient LILA GRAVES [facility] [id number] [place] 00:00:00 00:00:[address] 2023-02-14 2023-02-14 Office Lila Graves 1.2.840.1 [id number] Methodi 14:40:00 15:46:[address] 61624.1.[address] 3.430.2.7 Hospit a .3.117593 l .8 2023-02-14 2023-02-14 Outpatient LILA GRAVES [facility] 2100 [id number] [place] 00:00:00 00:00:[address] 2023-02-14 2023-02-14 Outpatient LILA GRAVES [facility] 2100 [id number] [place] 00:00:00 00:00:[address] 2023-02-14 2023-02-14 Orders Indu Ramirez 1.2.840.1 [id number] Methodi 00:00:00 00:00:[address] 3.430.2.7 Hospit a .3.430749 l .8 2023-02-14 2023-02-14 Travel 1.2.840.1 1.2.555.196 [id number] [id number] Methodi 00:00:00 00:00:[address] 3.430.2.7 0.2.7.3.698 spita .3.762259 084.8 l .8 2023-01-31 2023-01-31 Office Yadiranathalie, 1.2.840.1 [id number] Methodi 09:45:00 10:43:33 Visit Juan Whitman 74372.1.[address] 3.430.2.7 Hospit a .3.487134 l .8 2023-01-31 2023-01-31 Outpatient JULIEN [facility] [id number] [place] 00:00:00 00:00:00 JUAN [address] 2023-01-29 2023-01-29 Travel 1.2.840.1 1.2.925.575 [id number] [facility]i 00:00:00 00:00:[address] 3.430.2.7 0.2.7.3.698 Ho spita .3.899181 084.8 l .8 2023-01-29 2023-01-29 Orders Del [place], 1.2.840.1 [id number] Methodi 00:00:00 00:00:00 Only Nati 87973.1.[address] 3.430.2.7 Hospit a .3.155880 l .8 2023-01-24 2023-01-24 Office Arnulfo Trinh [facility] 1.2.840.114 14 [id number] [place] 15:15:00 16:28:46 [facility]13[facility]58 [facility] 9.2.7.2.686 [facility] [id number] 2022-12-21 2022-12-21 Outpatient FOG_A_Provi AOSM AOSM [id number] Tish 00:00:00 00:00:00 blanche [id number] [facility] 2022-12-21 2022-12-21 Outpatient FOG_A_Provi AOSM AOSM 584 [id number] Tish 00:00:00 00:00:00 blanche [id number] [facility] 2022 2022 Travel 1.2.840.1 1.2.594.879 8001 [id number] Methodi 00:00:00 00:00:[address] 3.430.2.7 0.2.7.3.698 Ho spita .3.066676 084.8 l .8 2022 2022 Orders Jovon, 1.2.840.1 [id number] [id number] [facility]i 00:00:00 00:00:00 Only Bashir 15906.1.[address] Hoang 3.430.2.7 Hospit a .3.570804 l .8 2022 2022 Travel 1.2.840.1 1.2.733.292 3767 [id number] Methodi 00:00:00 00:00:[address] 3.430.2.7 0.2.7.3.698 Ho spita .3.179316 084.8 l .8 2022 2022 Orders Fiebrich, 1.2.840.1 [id number] Methodi 00:00:00 00:00:00 Only Bashir 44880.1.[address] Hoang 3.430.2.7 Hospit a .3.642315 l .8 2022-12-18 2022-12-18 Outpatient SIMRAN, [facility] [id number] [facility] 09:57:00 23:59:00 NOA 2022-12-18 2022-12-18 External SIMRAN, EXT MSRDP 1.2.840.114 1 [id number] [place] 10:00:00 10:00:00 Contact NOA WHITTAKER 350.1.13.58 H ealt 9.2.7.2.686 [id number] 8 2022-12-06 2022-12-06 Telephone Todd 1.2.840.1 [id number] [id number] [facility] 00:00:00 00:00:00 Lonnie Hunter 63821.1.[address] 3.430.2.7 Hospit a .3.927355 l .8 2022-12-06 2022-12-06 Telephone Todd, 1.2.840.1 [id number] [id number] [facility]i 00:00:00 00:00:00 Lonnie Hunter 17575.1.[address] 3.430.2.7 Hospit a .3.673950 l .8 2022-12-04 2022-12-04 Office TIERA Donato 6400 1.2.496.716 [id number] [place] 08:15:00 08:23:[address] 350.1.13.58 Health 9.2.7.2.686 [id number] 3 2022-11-20 2022-11-20 Travel 1.2.840.1 1.2.986.220 [id number] [id number] [facility]i 00:00:00 00:00:[address] 3.430.2.7 0.2.7.3.698 Ho spita .3.882319 084.8 l .8 2022-11-20 2022-11-20 Travel 1.2.840.1 1.2.328.189 [id number] Methodi 00:00:00 00:00:[address] 3.430.2.7 0.2.7.3.698 Ho spita .3.721548 084.8 l .8 2022-11-06 2022-11-06 Office Julien, 1.2.840.1 [id number] Methodi 11:00:00 11:00:00 Visit Juan Haji. 34583.1.[address] 3.430.2.7 Hospit a .3.578274 l .8 2022-11-06 2022-11-06 Office Julien, 1.2.840.1 [id number] Methodi 11:00:00 11:00:00 Visit Juan Haji. 38106.1.[address] 3.430.2.7 Hospit a .3.009446 l .8 2022-10-19 2022-10-19 Travel 1.2.840.1 1.2.824.587 5079 [id number] [facility]i 00:00:00 00:00:[address] 3.430.2.7 0.2.7.3.698 Ho spita .3.503794 084.8 l .8 2022-10-19 2022-10-19 Travel 1.2.840.1 1.2.273.461 0247 073873 Methodi 00:00:00 00:00:[address] 3.430.2.7 0.2.7.3.698 Ho spita .3.251670 084.8 l .8 2022-10-17 2022-10-17 Office Todd, 1.2.840.1 [id number] 336961 0271 Methodi 14:30:00 15:48:47 Visit Lonnie Dale 00600.1.[address] 3.430.2.7 Hospit a .3.338331 l .8 2022-10-17 2022-10-17 Office Todd, 1.2.840.1 [id number] 336338 3001 Methodi 14:30:00 15:48:47 Visit Lonnie Dale 15457.1.[address] 3.430.2.7 Hospit a .3.418526 l .8 2022-10-12 2022-10-12 Refill Aleshabhumika, 1.2.840.1 [id number] 21 [id number] Methodi 00:00:00 00:00:[address] 3.430.2.7 Hospit a .3.439328 l .8 2022-10-12 2022-10-12 Refill Aleshabhumika, 1.2.840.1 [id number] 21 [id number] Methodi 00:00:00 00:00:[address] 3.430.2.7 Hospit a .3.320192 l .8 2022-10-11 2022-10-11 Office Sandra, 1.2.840.1 [id number] 21 [id number] Methodi 15:00:00 17:37:09 Visit Nicolle Villa 70501.1.[address] 3.430.2.7 Hospit a .3.115489 l .8 2022-10-11 2022-10-11 Office Scottpatricia, 1.2.840.1 [id number] 21 [id number] Methodi 15:00:00 17:37:09 Visit Nicolle SonuMohit 32958.1.[address] 3.430.2.7 Hospit a .3.686261 l .8 2022-10-11 2022-10-11 Outpatient [facility] 722 [id number] [place] 00:00:00 00:00:00 NICOLLE Valenzuela Method i st 2022-10-11 2022-10-11 Travel 1.2.840.1 1.2.084.718 3570 537233 Methodi 00:00:00 00:00:[address] 3.430.2.7 0.2.7.3.698 Ho spita .3.270008 084.8 l .8 2022-10-11 2022-10-11 Travel 1.2.840.1 1.2.645.845 3330 740032 Methodi 00:00:00 00:00:[address] 3.430.2.7 0.2.7.3.698 Ho spita .3.447668 084.8 l .8 2022-09-18 2022-09-18 Telephonic RAFF, [facility] 1.2.840.114 144 [id number] [place] 08:30:00 08:30:00 Encounter WENDY PAYNE 350.1.13.58 Health [place] 9.2.7.2.686 [facility] [id number] 2022-09-12 2022-09-12 Outpatient THOSANI, [facility] 7523 [facility] 06:35:00 23:59:00 [facility] 2022-09-12 2022-09-12 Outpatient THOSANI, [facility] [id number] [place] 10:00:00 10:00:00 [facility] 2022-07-17 2022-07-17 Outpatient KINGA, [facility] [id number] [place] 08:45:00 08:45:00 [facility] 2022-07-09 2022-07-09 Outpatient EDNA ISBELL [facility] [id number] [place] 13:00:00 13:00:00 [facility] 2022-06-06 2022-06-06 Outpatient PAOLA, [facility] MED 7519 [facility] 10:41:00 23:59:00 [facility] 2022-06-06 2022-06-06 Outpatient PAOLA, [facility] [id number] [place] 10:30:00 10:30:[address] [facility] 2022-04-04 2022-04-04 Telephone TIERA Donato 6400 1.2.840.114 13 [id number] [place] 00:00:00 00:00:00 Willi LAURENT 350.1.13.58 Health 9.2.7.2.686 [id number] 3 2022-03-07 2022-03-07 Outpatient LYNNE, [facility] 7522 [facility] 05:08:00 23:59:00 [facility] 2022-03-07 2022-03-07 Outpatient VIKTORIYAI, [facility] [id number] [place] 10:30:00 10:30:00 [facility] 2022-02-07 2022-02-07 Telephone Maria Sandhu 1.2.840.1 14 [id number] [place] 00:00:00 00:00:00 Maria Sandhu 350.1.13.58 Health MEDICAL 9.2.7.2.686 CENTER [id number] 2022-01-22 2022-01-22 Outpatient CHE, [facility] CAR 752 [id number] [facility] 08:40:00 15:20:00 CARLINE Al 2022-01-17 2022-01-17 Telephone Geno Babin 1.2.840.11 4 [id number] [place] 00:00:00 00:00:00 Geno BabinMONIQUE 350.1.13.58 Health MULTI 9.2.7.2.686 SPECIALTY [id number] CLINIC 1 2022-01-05 2022-01-05 Telephone Aydin Higgins 1.2.840.1 14 [id number] [place] 00:00:00 00:00:00 Aydin Higgins 350.1.13.58 Health MEDICAL 9.2.7.2.686 CENTER [id number] 2022-01-04 2022-01-04 Telephone Geno Babin UTP 1.2.840.11 4 [id number] [place] 00:00:00 00:00:00 Geno Babin 350.1.13.58 Health MULTI 9.2.7.2.686 SPECIALTY [id number] CLINIC 1 2022-01-02 2022-01-02 Telephone Geno aBbin UTP 1.2.840.11 4 [id number] [place] 00:00:00 00:00:00 Geno Babin 350.1.13.58 Health MULTI 9.2.7.2.686 SPECIALTY [id number] CLINIC 1 2021-12-18 2021-12-18 Travel 1.2.840.1 1.2.237.171 [id number] Method 00:00:00 00:00:[address] 3.430.2.7 0.2.7.3.698 Ho spita .[id number] 084.8 l .8 2021-12-15 2021-12-15 Telephone Sana Murillo TIERA FORDE 1.2.84 0.114 [id number] [place] 00:00:00 00:00:00 Sana Murillo TARIK 350.1.13.58 Health MEDICAL 9.2.7.2.686 [place] [id number] 0 2021-12-15 2021-12-15 Telephone Lexi Valencia UTP 1.2.840 .114 [id number] [place] 00:00:00 00:00:00 Lexi Valencia 350.1.13.58 Health MEDICAL 9.2.7.2.686 BUILDING [id number] 3 2021-12-14 2021-12-14 Office Ziggy Arnulfo UTP 1.2.840.114 13 [id number] [place] 14:45:00 16:00:18 [facility].13.58 [facility] 9.2.7.2.686 BUILDING [id number] 3 2021-12-14 2021-12-14 Telephone Allison Weber [place] 1.2.840.1 14 [id number] [place] 00:00:00 00:00:00 Allison Weber 350.1.13.58 Health MEDICAL 9.2.7.2.686 [place] [id number] 2021-11-22 2021-11-22 Outpatient SIMRAN [facility] 7518 [facility] 09:26:00 23:59:00 NOA 2021-07-06 2021-07-06 Office TIERA Donato 6400 1.2.106.947 [id number] [place] 14:51:27 16:10:[address] 350.1.13.58 Health 9.2.7.2.686 [id number] 3 2021-05-01 2021-05-01 Telephone TIERA Donato 6400 1.2.840.114 12 [id number] [place] 00:00:00 00:00:[address] 350.1.13.58 Health 9.2.7.2.686 [id number] 3 2021-04-28 2021-04-28 Refill TIERA Donato 6400 1.2.781.420 [id number] [place] 00:00:00 00:00:[address] 350.1.13.58 Health 9.2.7.2.686 [id number] 3 2021-04-03 2021-04-03 EXT MHH OP Paola, EXT MSRDP 1.2.840.114 1 [id number] [place] 00:00:00 00:00:00 Glenty LOCATION 350.1.13.58 H ealth 9.2.7.2.686 [id number] 0 2021-04-03 2021-04-03 EXT MHH OP Paola, EXT MSRDP 1.2.840.114 1 [id number] [place] 00:00:00 00:00:00 Glenty LOCATION 350.1.13.58 H ealth 9.2.7.2.686 [id number] 2021-03-30 2021-03-30 Outpatient PAOLA [facility] MED [id number] [facility] 12:33:00 23:59:00 GLENTY 2021-03-17 2021-03-17 EXT MHH OP EXT MSRDP 1.2.840.114 1 [id number] [place] 00:00:00 00:00:00 LOCATION 350.1.13.58 H ealth 9.2.7.2.686 [id number] 2021-03-17 2021-03-17 EXT MHH OP EXT MSRDP 1.2.840.114 1 [id number] [place] 00:00:00 00:00:00 LOCATION 350.1.13.58 H ealth 9.2.7.2.686 [id number] 2021-03-09 2021-03-09 Refill ZiggyArnulfo UTP 1.2.840.114 12 [id number] [place] 00:00:00 00:00:00 [facility] 350.1.13.58 H ealth MULTI 9.2.7.2.686 [facility] [id number] CLINIC 1 2021-02-20 2021-02-20 Outpatient [facility] 7517 [facility] 15:02:00 23:59:00 RUDY 2021-02-20 2021-02-20 EXT MHH OP EXT MSRDP 1.2.840.114 1 [id number] [place] 00:00:00 00:00:00 LOCATION 350.1.13.58 H ealth 9.2.7.2.686 [id number] 2021-02-20 2021-02-20 EXT MHH OP EXT MSRDP 1.2.840.114 1 [id number] [place] 00:00:00 00:00:00 LOCATION 350.1.13.58 H ealth 9.2.7.2.686 [id number] 2021-02-07 2021-02-07 Outpatient [facility], [facility] 7516 [facility] 09:55:00 15:05:00 RUDY 2021-02-03 2021-02-03 EXT MHH OP EXT MSRDP 1.2.840.114 1 [id number] [place] 00:00:00 00:00:00 LOCATION 350.1.13.58 H ealth 9.2.7.2.686 [id number] 2021-02-03 2021-02-03 EXT MHH OP EXT MSRDP 1.2.840.114 1 [id number] [place] 00:00:00 00:00:00 LOCATION 350.1.13.58 H ealth 9.2.7.2.686 [id number] 0 2021-02-03 2021-02-03 EXT MHH OP EXT MSRDP 1.2.840.114 1 [id number] [place] 00:00:00 00:00:00 LOCATION 350.1.13.58 H ealth 9.2.7.2.686 [id number] 0 2021-02-03 2021-02-03 EXT MHH OP EXT MSRDP 1.2.840.114 1 [id number] [place] 00:00:00 00:00:00 LOCATION 350.1.13.58 H ealth 9.2.7.2.686 [id number] 2021-01-10 2021-01-10 EXT MHH OP Paola, EXT MSRDP 1.2.840.114 1 [id number] [place] 00:00:00 00:00:00 [facility] 350.1.13.58 H ealth 9.2.7.2.686 [id number] 2021-01-10 2021-01-10 EXT MHH OP Paola, EXT MSRDP 1.2.840.114 1 [id number] [place] 00:00:00 00:00:00 [facility] 350.1.13.58 H ealth 9.2.7.2.686 [id number] 2020-11-17 2020-11-17 Outpatient SIMRAN [facility] [id number] [facility] 11:37:00 23:59:00 NOA 2020-09-22 2020-09-22 Outpatient PAOLA [facility] MED [id number] [facility] 10:43:00 23:59:00 EDISON 2019-10-22 2019-10-22 Outpatient [facility] MED [id number] [facility] 10:56:00 10:56:00 2019-09-07 2019-09-07 Outpatient MH CAR 7511 [facility] 09:31:00 09:31:00 2019-08-03 2019-08-03 Outpatient [facility] CAR 7510 [facility] 10:43:00 10:43:00 2019-07-09 2019-07-09 Outpatient [facility] MED 7507 [facility] 09:51:00 09:51:00 2019-06-29 2019-06-29 Outpatient [facility] CAR 7508 [facility] 11:52:00 11:52:00 2018-10-15 2018-10-15 Appointromario DONTAO [facility] Otorhinolar 48 [id number] [place] 13:15:00 13:15:00 t; gema BOTELLO - Phy coby DONATO M.D. [facility] WILLI [facility] Roxy [place] 2018-09-24 2018-09-24 Appointromario GANT [facility] Otorhinolar 48 [id number] [place] 13:30:00 13:30:00 t; Roxy [facility] 2018-05-21 2018-05-21 Appointromario KYLE, [facility] UTP [id number] [place] 08:30:00 08:30:00 t; ALESSANRDO KYLE M.D. Physici BRAD, M.D. [facility] 2018-05-09 2018-05-09 [facility] UTP [id number] [place] 13:15:00 13:15:00 t; ALESSANDRO KYLE M.D. Physici BRAD, M.D. ans 2018-04-14 2018-04-14 [facility]J [facility] UTP [id number] [place] 09:00:00 09:00:00 t; ALESSANDRO KYLE M.D. Physici BRAD, M.D. ans 2017-12-31 2017-12-31 Appointromario SWIFT, [facility] UTP [id number] [place] 10:30:00 10:30:00 t; Lydia HODGE M.D. ans KOUROSH, M.D. 2017-12-04 2017-12-04 Appointromario SWIFT, TIERA UTP [id number] [place] 09:15:00 09:15:00 t; Lydia HODGE M.D. ans KOUROSH, M.D. 2017-10-09 2017-10-09 Appointmen MART, UTP UTP [id number] [place] 08:10:00 08:10:00 t; MAXI CEVALLOS Phy Misti Baer ans P.AMohit 2017-09-23 2017-09-23 Appointmen ROSALINDANIA, UTP UTP [id number] [place] 15:00:00 15:00:00 t; Lydia HODGE M.D. ans KOUROSH, M.D. 2017-09-13 2017-09-13 Appointmen DONTAFARNIA, UTP UTP [id number] [place] 10:30:00 10:30:00 t; Lydia HODGE M.D. ans KOUROSH, M.D. 2017-07-30 2017-07-30 Appointmen CITMARU, UTP UTP [id number] [place] 16:00:00 16:00:00 t; Clara BOTELLO i, M.D. ans MARTIN, M.D. 2017-02-12 2017-02-12 Appointmen KINGA, UTP UTP [id number] [place] 10:15:00 10:15:00 t; Clara BOTELLO i, M.D. ans MARTIN, M.D. 2017-01-07 2017-01-07 Appointmen KINGA, UTP UTP [id number] [place] 16:00:00 16:00:00 t; Clara BOTELLO i, M.D. ans MARTIN, M.D. 2016-12-14 2016-12-14 Appointmen ZACHARY, UTP UTP [id number] UT 11:30:00 11:30:00 t; SHAILESH SHARMA Phy sici IBRAHIM, M.D. ans M.D. 2016-10-30 2016-10-30 Appointmen KINGA, UTP UTP [id number] [place] 10:30:00 10:30:00 t; Clara BOTELLO i, M.D. ans MARTIN, M.D. 2016-10-30 2016-10-30 Appointmen ENRIQUETA, UTP UTP [id number] [place] 09:30:00 09:30:00 t; ANSON ROBISON sicmonika GRIGGS ans 2016-09-14 2016-09-14 Appointmen CITARDI, UTP UTP [id number] UT 09:00:00 09:00:00 t; Clara BOTELLO i, M.D. ans MARTIN, M.D. 2016-08-28 2016-08-28 Appointmen CITARDI, UTP UTP [id number] [place] 10:00:00 10:00:00 t; Clara BOTELLO i, M.D. ans MARTIN, M.D. 2016-08-13 2016-08-13 Appointmen CITARDI, UTP UTP [id number] [place] 08:45:00 08:45:00 t; Clara BOTELLO i, M.D. ans MARTIN, M.D. 2016-08-06 2016-08-06 Appointmen CITARDI, UTP UTP [id number] UT 13:45:00 13:45:00 t; Clara BOTELLO i, M.D. ans MARTIN, M.D. 2016-07-03 2016-07-03 Appointmen CITARDI, UTP UTP [id number] UT 13:45:00 13:45:00 t; Clara BOTELLO i, M.D. ans MARTIN, M.D. 2016-06-19 2016-06-19 Appointmen CITARDI, UTP UTP [id number] UT 13:00:00 13:00:00 t; Clara BOTELLO i, M.D. ans MARTIN, M.D. 2016-06-15 2016-06-15 [facility] GENERAL, [facility] UTP [id number] [place] 11:00:00 11:00:00 t; AUDIOLOGY [facility], [facility] AUDIOLOGY 2016-06-15 2016-06-15 [facility] ALFR[facility], [facility] UTP [id number] [place] 08:15:00 08:15:00 t; Roxy GRIGGS ans JOHN, M.D. 2016-06-04 2016-06-04 Appointmen CITARDI, UTP UTP [id number] UT 13:00:00 13:00:00 t; Clara BOTELLO i, M.D. ans MARTIN, M.D. 2016-05-31 2016-05-31 Mesfinmen CITMARU, UTP UTP [id number] [place] 14:00:00 14:00:00 t; Clara BOTELLO i, M.D. ans MARTIN, M.D. 2016-05-16 2016-05-16 [facility] KINGA, [facility] UTP [id number] UT 13:30:00 13:30:00 t; Clara BOTELLO i, M.D. ans MARTIN, M.D. Results This patient has no known results.
[2023-04-06 00:47] LABS: Absolute Lymphocytes (CBC) 1.9 K/uL (0.7-4.9); Hematocrit 40.2 % (39.6-49.0); Lymphocytes % 20.3 % (15.3-44.8); MCV 87.2 fL (80-100); MPV 6.8 fL (7.6-11.3)
[2023-04-06 00:59] LABS: Potassium 3.7 mEq/L (3.5-5.1); Specific Gravity 1.014 (1.005-1.030); Urine Bilirubin NEGATIVE (Negative); Urine Blood Negative (Negative); Urine Clarity Clear (Clear); Urine Color Light-Yellow (Yellow); Urine Glucose NEGATIVE (Negative); Urine Protein NEGATIVE (Negative); Urine Urobilinogen Normal (Normal); Urine pH 5.5 (5.0-7.0)
--- NOTE | 2023-04-06 02:28 | EDPHYS ---
Physician Documentation [facility] Name: Rogelio Carrasco Age: 57 yrs Sex: Male : 1965 Arrival Date: 04/05/2023 Time: 23:58 Bed 6 Private MD: ED Physician Shane Geiger HPI: 04/06 00:35 This 57 yrs old Male presents to ER via Ambulatory with complaints of Urinary Frequency.kb 00:35 The patient presents with urinary symptoms, urinary frequency. Onset: The kb symptoms/episode began/occurred 10 day(s) ago. Modifying factors: The symptoms are alleviated by nothing, the symptoms are aggravated by nothing. Associated signs and symptoms: Pertinent positives: hematuria. Severity of symptoms: At their worst the symptoms were moderate, in the emergency department the symptoms are unchanged. The patient has not experienced similar symptoms in the past. The patient has been recently seen by a physician: the patient's primary care provider. Pt reports hematuria, difficulty urinating, urinary frequency and bilateral flank pain that radiates to testicles for 10 days. was seen by PCP on Saturday and started on macrobid without relief. Historical: - Allergies: 00:12 PENICILLINS; kl 00:12 Bactrim; kl 00:12 Cleocin; kl 00:12 Levaquin; kl - Home Meds: 00:12 Flomax 0.4 mg Oral capsule daily [Active]; Macrobid 100 mg Oral capsule 2 times per day kl [Active]; - PSHx: 00:12 None; kl - Immunization history:: Adult Immunizations not up to date. - Social history:: Smoking status: Patient denies any tobacco usage or history of. ROS: 00:34 Constitutional: Negative for fever, chills, and weight loss. kb 00:34 Back: Positive for flank pain, bilaterally. 00:34 : Positive for urinary symptoms, flank pain, urinary frequency, hematuria, difficulty urinating, testicular pain 00:34 All other systems are negative. Exam: 00:34 Constitutional: This is a well developed, well nourished patient who is awake, alert, kb and in no acute distress. Head/Face: Normocephalic, atraumatic. ENT: Moist Mucous membranes Cardiovascular: Regular rate and rhythm with a normal S1 and S2. No gallops, murmurs, or rubs. No pulse deficits. Respiratory: Respirations even and unlabored. No increased work of breathing. Talking in full sentences Skin: Warm, dry with normal turgor. Normal color. MS/ Extremity: Pulses equal, no cyanosis. Neurovascular intact. Full, normal range of motion. Neuro: Awake and alert, GCS 15, oriented to person, place, time, and situation. Moves all extremities. Normal gait. 00:34 Abdomen/GI: Inspection: abdomen appears normal, Bowel sounds: normal, in all quadrants, Palpation: soft, in all quadrants, mild abdominal tenderness, in the right lower quadrant and left lower quadrant. 00:34 Back: CVA tenderness, that is mild, is noted bilaterally. Vital Signs: 00:08 Pulse 69; Resp 18; Temp 97.9; Pulse Ox 98% ; Weight 102.06 kg (R); Height 5 ft. 11 in. kl ; Pain 6/10; 01:59 BP 134 / 86; Pulse 72; Resp 18 S; Pulse Ox 99% on R/A; lg3 03:54 BP 137 / 81; Pulse 66; Resp 17 S; Pulse Ox 98% on R/A; lg3 00:08 Body Mass Index 31.38 (102.06 kg, 180.34 cm) kl 00:08 Pain Scale: Adult kl MDM: 00:07 Patient medically screened. kb 00:35 Data reviewed: vital signs, nurses notes. kb 02:26 Differential diagnosis: UTI, enlarged prostate, kidney stone. Counseling: I had a kb detailed discussion with the patient and/or guardian regarding: the historical points, exam findings, and any diagnostic results supporting the discharge/admit diagnosis, lab results, radiology results, the need for outpatient follow up, a urologist, to return to the emergency department if symptoms worsen or persist or if there are any questions or concerns that arise at home. 02:28 ED course: Pt will continue previously prescribed antibiotics. kb 04/06 00:12 Order name: Urinalysis w/ reflexes; Complete Time: 00:59 kb 04/06 00:12 Order name: CBC with Diff; Complete Time: 00:50 kb 04/06 00:12 Order name: Basic Metabolic Panel; Complete Time: 00:59 kb 04/06 00:12 Order name: CT Stone Protocol kb 04/06 00:12 Order name: IV Start; Complete Time: 00:40 kb Administered Medications: 02:35 Drug: Magnesium Sulfate IVPB 1 grams Route: IVPB; Infused Over: 1 hrs; Site: left lg3 antecubital; 03:53 Follow up: Response: No adverse reaction; IV Status: Completed infusion; IV Intake: lg3 100ml 02:36 Drug: Ketorolac IVP 15 mg Route: IVP; Site: left antecubital; lg3 03:54 Follow up: Response: No adverse reaction; Marked relief of symptoms lg3 02:36 Drug: NS 0.9% IV 1000 ml Route: IV; Rate: 1000 ml; Site: left antecubital; lg3 03:54 Follow up: IV Status: Completed infusion; IV Intake: 1000ml lg3 Disposition: 04/07 01:39 Co-signature as Attending Physician, Shane Geiger MD I agree with the assessment sp4 and plan of care. I reviewed the patient's care provided by the Advanced Practice Provider and agree with the diagnosis and treatment plan. Disposition Summary: 04/06/23 02:27 Discharge Ordered Location: Home kb Condition: Stable kb Diagnosis - Calculus of ureter kb Followup: kb - With: Emergency Department - When: As needed - Reason: Worsening of condition Followup: kb - With: Private Physician - When: 2 - 3 days - Reason: Recheck today's complaints, Continuance of care, Re-evaluation by your physician Discharge Instructions: - Discharge Summary Sheet kb - Kidney Stones, Meeg-fu-Tkjy kb - Dietary Guidelines to Help Prevent Kidney Stones kb Forms: - Medication Reconciliation Form kb - Thank You Letter kb - Antibiotic Education kb - Prescription Opioid Use kb - MedHo_Portal_[email or web address].htm kb Prescriptions: - Zofran 4 mg Oral Tablet - take 1 tablet by ORAL route every 6 hours As needed; 12 tablet; Refills: 0, kb Product Selection Permitted - Diclofenac Sodium 75 mg Oral tablet,delayed release (DR/EC) - take 1 tablet by ORAL route 2 times per day As needed; 30 tablet; Refills: 0, kb Product Selection Permitted Signatures: Dispatcher [employer] Olya Vale FNP-C FNP-Ckb Lewis, Kimberly, RN RN kl Gibson, Lacie, RN RN lg3 Shane Geiger MD MD sp4
--- NOTE | 2023-04-06 02:28 | ER ---
Nurse's Notes [facility] Name: Rogelio Carrasco Age: 57 yrs Sex: Male : 1965 Arrival Date: 04/05/2023 Time: 23:58 Bed 6 Private MD: Diagnosis: Calculus of ureter Presentation: 04/06 00:08 Chief complaint: Patient states: lower back pain since Saturday reports pain radiates to kl groin on Macrobid since Saturday without improvement. Coronavirus screen: Vaccine status: Patient reports receiving the 2nd dose of the covid vaccine. Ebola Screen: Patient negative for fever greater than or equal to 101.5 degrees Fahrenheit, and additional compatible Ebola Virus Disease symptoms. Initial Sepsis Screen: Does the patient meet any 2 criteria? No. Patient's initial sepsis screen is negative. Does the patient have a suspected source of infection? No. Patient's initial sepsis screen is negative. Risk Assessment: Do you want to hurt yourself or someone else? Patient reports no desire to harm self or others. Onset of symptoms was March 26, 2023. 00:08 Method Of Arrival: Ambulatory kl 00:08 Acuity: YOLY 3 kl Triage Assessment: 00:13 General: Appears uncomfortable, Behavior is calm, cooperative. Pain: Complains of pain kl in lumbar area, left low back and right low back Pain radiates to bilateral groin Pain currently is 6 out of 10 on a pain scale. : Reports pain urgency, difficulty urinating. Historical: - Allergies: 00:12 PENICILLINS; kl 00:12 Bactrim; kl 00:12 Cleocin; kl 00:12 Levaquin; kl - Home Meds: 00:12 Flomax 0.4 mg Oral capsule daily [Active]; Macrobid 100 mg Oral capsule 2 times per day kl [Active]; - PSHx: 00:12 None; kl - Immunization history:: Adult Immunizations not up to date. - Social history:: Smoking status: Patient denies any tobacco usage or history of. Screenin:47 [facility] ED Fall Risk Assessment (Adult) History of falling in the last 3 months, lg3 including since admission No falls in past 3 months (0 pts). Abuse screen: Denies threats or abuse. Denies injuries from another. Nutritional screening: No deficits noted. Tuberculosis screening: No symptoms or risk factors identified. Assessment: 00:47 General: Appears in no apparent distress. comfortable, Behavior is calm, cooperative. lg3 Pain: Complains of pain in right groin. Neuro: No deficits noted. Haney Agitation-Sedation Scale (RASS): 0 - Alert and Calm Level of Consciousness is awake, alert, obeys commands, Oriented to person, place, time, situation. Cardiovascular: No deficits noted. Denies chest pain, shortness of breath, Capillary refill < 3 seconds Clubbing of nail beds is absent JVD is absent Patient's skin is warm and dry. Respiratory: No deficits noted. Airway is patent Respiratory effort is even, unlabored, Respiratory pattern is regular, symmetrical. GI: No deficits noted. No signs and/or symptoms were reported involving the gastrointestinal system. Abdomen is round non-distended, Abd is soft and non tender X 4 quads. : Reports inability to void, pain in right in suprapubic area urinary frequency. EENT: No deficits noted. No signs and/or symptoms were reported regarding the EENT system. Derm: Skin is intact, is healthy with good turgor, Skin is dry, Skin is normal, Skin temperature is warm Wound noted lateral aspect of left calf Wound is linear abrasion approximately 2 inches in length noted to lateral aspect of left calf with moderate bleeding. pt states that he cut it this morning with a piece of glass but it just stated bleeding again on arrival to room. provider notified. Musculoskeletal: No deficits noted. No signs and/or symptoms reported regarding the musculoskeletal system. Circulation, motion, and sensation intact. Range of motion: intact in all extremities. 01:59 Reassessment: Patient appears in no apparent distress at this time. No changes from lg3 previously documented assessment. Patient and/or family updated on plan of care and expected duration. Pain level reassessed. Patient is alert, oriented x 3, equal unlabored respirations, skin warm/dry/pink. 02:36 General: DC pending completion of medication administration. lg3 03:54 Reassessment: Patient appears in no apparent distress at this time. No changes from lg3 previously documented assessment. Patient and/or family updated on plan of care and expected duration. Pain level reassessed. Patient is alert, oriented x 3, equal unlabored respirations, skin warm/dry/pink. Patient states symptoms have improved. Vital Signs: 00:08 Pulse 69; Resp 18; Temp 97.9; Pulse Ox 98% ; Weight 102.06 kg (R); Height 5 ft. 11 in. kl ; Pain 6/10; 01:59 BP 134 / 86; Pulse 72; Resp 18 S; Pulse Ox 99% on R/A; lg3 03:54 BP 137 / 81; Pulse 66; Resp 17 S; Pulse Ox 98% on R/A; lg3 00:08 Body Mass Index 31.38 (102.06 kg, 180.34 cm) 00:08 Pain Scale: Adult ED Course: 00:02 Patient arrived in ED. ag3 00:05 Olya Hanson FNP-C is PHCP. kb 00:05 Shane Geiger MD is Attending Physician. kb 00:12 Triage completed. kl 00:20 Carmen Muniz, ADAL is Primary Nurse. lg3 00:40 Urinalysis w/ reflexes Sent. rv1 00:40 CBC with Diff Sent. rv1 00:40 Basic Metabolic Panel Sent. rv1 00:40 Inserted saline lock: 20 gauge in left antecubital area, using aseptic technique. Blood rv1 collected. 00:47 Patient has correct armband on for positive identification. Placed in gown. Bed in low lg3 position. Call light in reach. Side rails up X 1. Client placed on continuous cardiac and pulse oximetry monitoring. NIBP monitoring applied. Door closed. Noise minimized. Warm blanket given. 00:47 Arm band placed on right wrist. lg3 01:10 Wound care: to abrasion, located on lateral aspect of left calf was cleaned with soap lg3 and water, dressed with steri strips, Patient tolerated well. 01:54 CT Stone Protocol In Process Unspecified. EDMS 03:54 No provider procedures requiring assistance completed. IV discontinued, intact, lg3 bleeding controlled, No redness/swelling at site. Pressure dressing applied. Administered Medications: 02:35 Drug: Magnesium Sulfate IVPB 1 grams Route: IVPB; Infused Over: 1 hrs; Site: left lg3 antecubital; 03:53 Follow up: Response: No adverse reaction; IV Status: Completed infusion; IV Intake: lg3 100ml 02:36 Drug: Ketorolac IVP 15 mg Route: IVP; Site: left antecubital; lg3 03:54 Follow up: Response: No adverse reaction; Marked relief of symptoms lg3 02:36 Drug: NS 0.9% IV 1000 ml Route: IV; Rate: 1000 ml; Site: left antecubital; lg3 03:54 Follow up: IV Status: Completed infusion; IV Intake: 1000ml lg3 Medication: 03:54 VIS not applicable for this client. lg3 Intake: 03:53 IV: 100ml; Total: 100ml. lg3 03:54 IV: 1000ml; Total: 1100ml. lg3 Outcome: 02:27 Discharge ordered by MD. mejia 03:54 Discharged to home ambulatory. lg3 03:54 Condition: stable 03:54 Discharge instructions given to patient, Instructed on discharge instructions, follow up and referral plans. medication usage, Demonstrated understanding of instructions, follow-up care, medications, Prescriptions given X 2. 03:55 Patient left the ED. lg3 Signatures: Dispatcher [employer] EDMS Olya Hanson, DAMARI PINEDA-Sana Ordaz RN RN kl Gomez, [facility] Carmen Muniz RN RN 3 Margarita Tse [facility]
[2023-04-06] MEDS ORDERED: NA CHLORIDE 0.9% 1,000 ML ONE (02:35)
[2023-04-06] MEDS ORDERED: MAGNESIUM SULFATE 1 gm IVPB 1 GM/100 ML BAG IV ONE (02:36)
[2023-04-06] MEDS ORDERED: KETOROLAC 30 MG/ML INJ ONE (02:36)
[2023-04-06 04:11] VITALS: TEMP 97.9
[2023-04-06 04:14] VITALS: BP 137/81; O2SAT 98
--- NOTE | 2023-04-07 20:23 | RAD REPORT ---
EXAM DESCRIPTION: CT - Stone Protocol - 04/06/2023 6:35 am CLINICAL HISTORY: The patient is 57 years old and is Male; ABD PAIN TECHNIQUE: Axial computed tomography images of the abdomen and pelvis without intravenous contrast. Sagittal and coronal reformatted images were created and reviewed. This CT exam was performed usi ng one or more of the following dose reduction techniques: automated exposure control, adjustment o f the mA and/or kV according to patient size, and/or use of iterative reconstruction technique. COMPARISON: No relevant prior studies available. FINDINGS: Lung bases: Unremarkable. No mass. No consolidation. ABDOMEN: Liver: Unremarkable. Gallbladder and bile ducts: Unremarkable. No calcified stones. No ductal dilation. Pancreas: Unremarkable. No ductal dilation. Spleen: Unremarkable. No splenomegaly. Adrenals: Unremarkable. No mass. Kidneys and ureters: 3 mm right UVJ stone. Mild right hydroureter and periureteral stranding. Stomach and bowel: Scattered colonic diverticula. No obstruction. No mucosal thickening. PELVIS: Appendix: No findings to suggest acute appendicitis. Bladder: Unremarkable. Reproductive: Unremarkable as visualized. ABDOMEN and PELVIS: Intraperitoneal space: Unremarkable. No free air. No significant fluid collection. Bones/joints: No acute fracture. No dislocation. Soft tissues: Unremarkable. Vasculature: Scattered atherosclerotic vascular calcifications. No abdominal aortic aneurysm. Lymph nodes: Unremarkable. No enlarged lymph nodes. IMPRESSION: 3 mm right UVJ stone. Mild right hydroureter and periureteral stranding. Electronically signed by: Ottoniel Kaminski MD 04/06/2023 2:15 AM CDT Due to temporary technical issues with the PACS/Fluency reporting system, reports are being signed by the in house radiologists without review as a courtesy to insure prompt reporting. The interpreting radiologist is fully responsible for the content of the report.
== END 2023-04-06 03:55 | disposition home or self-care (01) ==
LOC: ER 23:58
DX: N20.1 Calculus of ureter (principal); Z88.0 Allergy status to penicillin; Z88.1 Allergy status to other antibiotic agents
CPT/HCPCS: 96365; 85025; 80048; 36415; 81003; 76377; 74176; 96375; 99284; J3475; J7030